=== PATIENT | male | born 2005 ===

== ENCOUNTER 2023-12-26 21:28 | Emergency (ER) | payer MEDICAID, SELFPAY ==
[2023-12-26 21:34] VITALS: BP 121/77; PULSE 74; RESP 16; RESP 18; TEMP 36.7; O2SAT 99; BMI 19.7
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
[2023-12-26] MEDS: AMOXICILLIN 250 MG CAPSULE 500 MG PO (22:09)
[2023-12-26 22:10] VITALS: BP 119/74; PULSE 78; RESP 18; TEMP 36.7; O2SAT 99
[2023-12-26 22:33] VITALS: BP 119/74; PULSE 78; RESP 18; TEMP 36.7
== END 2023-12-26 22:33 | disposition home or self-care (01) ==
LOC: ED 22:16
PROVIDERS: Emergency Provider Student in an Organized Health Care Education/Training Program
DX: K08.89 Other specified disorders of teeth and supporting structures (principal)
CPT/HCPCS: 99282; 99283; A9270